=== PATIENT | female | born 1935 | race Asian ===

== ENCOUNTER 2019-05-03 16:01 | Inpatient (IN) | payer OTHER ==
[~2019-05-03] VITALS: Ht 152.4 cm; Wt 67.1 kg
[2019-05-03 16:06] VITALS: Ht 152.4 cm; Wt 67.1 kg
[2019-05-03 16:35] LABS: BASOPHIL % 0.5 % (0-2); PLATELET COUNT 171 x10^3mcL (130-400)
[2019-05-03 16:36] LABS: RED CELL DISTRIBUTION WIDTH 15.4 % (11.5-14.5)
[2019-05-03 17:03] LABS: CALCIUM 9.1 mg/dL (8.5-10.1); CARBON DIOXIDE 29.1 mmol/L (21-32); CHLORIDE SERUM 104 mmol/L (98-107); CREATININE SERUM 0.8 mg/dL (0.6-1.0); GLUCOSE SERUM 115 mg/dL (74-106); POTASSIUM SERUM 4.1 mmol/L (3.5-5.1); SODIUM SERUM 140 mmol/L (136-145)
[2019-05-03 17:09] LABS: ALBUMIN 3.9 g/dL (3.4-5.0); ALKALINE PHOSPHATASE 71 U/L (46-116); ALT/SGPT 24 U/L (14-59); AST/SGOT 11 U/L (15-37); BILIRUBIN TOTAL 0.27 mg/dL (0.20-1.00); TOTAL PROTEIN, SERUM 7.7 g/dL (6.4-8.2)
[2019-05-03] MEDS ORDERED: GLU850 PO (19:30)
[2019-05-03] MEDS ORDERED: LISINOPRIL2.5 MG PO (19:31)
[2019-05-03] MEDS ORDERED: D3-50001 TAB PO (19:31)
[2019-05-03] MEDS ORDERED: ELIQUIS2.5 MG PO (19:31)
[2019-05-03] MEDS ORDERED: VENTOLIN H0.09 MG/A1 INH (19:32)
[2019-05-03] MEDS ORDERED: FOLIC ACID5 MG/ML IJ (19:32)
[2019-05-03 20:40] VITALS: BP 141/59
[2019-05-04 00:08] VITALS: BP 155/56
[2019-05-04 05:27] VITALS: BP 155/58
[2019-05-04 08:23] VITALS: BP 147/54
[2019-05-04 12:02] VITALS: BP 142/54
[2019-05-04 17:02] VITALS: BP 150/46
[2019-05-04 21:06] VITALS: BP 147/61
[2019-05-05 05:48] VITALS: BP 146/63
[2019-05-05 06:27] LABS: PLATELET COUNT 170 x10^3mcL (130-400)
[2019-05-05 07:19] LABS: ALKALINE PHOSPHATASE 56 U/L (46-116); ALT/SGPT 22 U/L (14-59); AST/SGOT 14 U/L (15-37); BILIRUBIN TOTAL 0.2 mg/dL (0.20-1.00); CARBON DIOXIDE 29.7 mmol/L (21-32); CHLORIDE SERUM 106 mmol/L (98-107); CREATININE SERUM 0.9 mg/dL (0.6-1.0); GLUCOSE SERUM 209 mg/dL (74-106); MAGNESIUM 2.4 mg/dL (1.8-2.4); POTASSIUM SERUM 4.4 mmol/L (3.5-5.1); SODIUM SERUM 140 mmol/L (136-145); TOTAL PROTEIN, SERUM 7.1 g/dL (6.4-8.2)
[2019-05-05 07:21] LABS: ALBUMIN 3.2 g/dL (3.4-5.0)
[2019-05-05 07:31] VITALS: BP 141/54
[2019-05-05 07:54] LABS: BASOPHIL % 0 % (0-2); RED CELL DISTRIBUTION WIDTH 15.5 % (11.5-14.5)
[2019-05-05] MEDS ORDERED: LEVAQUIN750 MG PO (10:27)
[2019-05-05] MEDS ORDERED: PREDNISONE20 MG PO (10:28)
[2019-05-05 11:45] VITALS: BP 141/54
== END 2019-05-05 13:15 | disposition home or self-care (01) | DRG 193 ==
LOC: ED 16:01 → DU 19:06
PROVIDERS: Emergency Medicine; Internal Medicine Pulmonary Disease; ADMIT Internal Medicine Pulmonary Disease
DX: J18.9 Pneumonia, unspecified organism (principal); J96.21 Acute and chronic respiratory failure with hypoxia; J44.1 Chronic obstructive pulmonary disease with (acute) exacerbation; E11.9 Type 2 diabetes mellitus without complications; I10 Essential (primary) hypertension; Z99.81 Dependence on supplemental oxygen; Z87.891 Personal history of nicotine dependence; Z79.01 Long term (current) use of anticoagulants; Z68.27 Body mass index [BMI] 27.0-27.9, adult
CPT/HCPCS: 36600; 83880; 87804; 90658; G0378; J0456; J0696; J1650; J2920; J2930; J7040; J7060; J7613; J7620; J7644; Q0092

== ENCOUNTER 2019-05-29 16:01 | Observation (INO) | payer OTHER ==
[~2019-05-29] VITALS: Ht 152.4 cm; Wt 67.2 kg
[~2019-05-29 16:01] MED LIST: D3-50001 TAB PO; ELIQUIS2.5 MG PO; FOLIC ACID5 MG/ML IJ; GLU850 PO; LEVAQUIN750 MG PO; LISINOPRIL2.5 MG PO; PREDNISONE20 MG PO; VENTOLIN H0.09 MG/A1 INH
--- NOTE | 2019-05-29 16:14 | NUR ---
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 PER PT, SHE NOTICED HER BP WAS HIGH, THEN SHE STARTED TO HAVE SOB. PT STS SHE SAW HER REPRODUCTION TECHNICIAN LAST WEEK REGARDING HER HBP AND ADVISED TO TAKE CLONIDINE ONCE A DAY. PT DENIES SOB, CP, FEVER OR SICK CONTACT. HX OF COPD, ON 3L O2 AT HOME. PT AAOX4, CLEAR SPEECH, NO FACIAL DROOP, RESP EU, IN NO ACUTE DISTRESS. PT ON CM.
--- NOTE | 2019-05-29 16:14 | NUR ---
DR WILSON AT BEDSIDE FOR MSE.
--- NOTE | 2019-05-29 16:15 | NUR ---
RT AT BEDSIDE FOR ABG DRAW.
--- NOTE | 2019-05-29 16:22 | NUR ---
NALINI LEIGH AT BEDSIDE FOR EKG.
[2019-05-29 16:38] LABS: BASOPHIL % 0.3 % (0-2); PLATELET COUNT 144 x10^3mcL (130-400)
[2019-05-29 16:42] LABS: RED CELL DISTRIBUTION WIDTH 15.2 % (11.5-14.5)
--- NOTE | 2019-05-29 16:47 | NUR ---
BREATHING TX IN PROGRESS AT BEDSIDE.
[2019-05-29 16:48] LABS: CALCIUM 9.2 mg/dL (8.5-10.1); CARBON DIOXIDE 31.3 mmol/L (21-32); CHLORIDE SERUM 104 mmol/L (98-107); CREATININE SERUM 0.8 mg/dL (0.6-1.0); GLUCOSE SERUM 139 mg/dL (74-106); POTASSIUM SERUM 3.9 mmol/L (3.5-5.1); SODIUM SERUM 141 mmol/L (136-145)
[2019-05-29 17:00] LABS: ALBUMIN 3.4 g/dL (3.4-5.0); ALKALINE PHOSPHATASE 53 U/L (46-116); ALT/SGPT 24 U/L (14-59); AST/SGOT 12 U/L (15-37); BILIRUBIN TOTAL 0.3 mg/dL (0.20-1.00); CHOLESTEROL 152 mg/dL (<200); HDL CHOLESTEROL 75 mg/dL (40-60); LIPASE 176 IU/L (73-393); T4(THYROXINE) 7.5 ug/dL (4.7-13.3); TOTAL PROTEIN, SERUM 6.9 g/dL (6.4-8.2)
[2019-05-29 17:44] LABS: microscopic required? NO
[2019-05-29 17:53] LABS: urine erythrocyte NEGATIVE (NEGATIVE)
[2019-05-29 18:05] LABS: AMPHETAMINE QUAL UR NONE DETECTED (See below)
--- NOTE | 2019-05-29 19:03 | NUR ---
PT AMBULATED TO THE RESTROOM WITH O2.
[2019-05-29] MEDS ORDERED: CLONIDINE HYDR0.1 M1 (20:03)
--- NOTE | 2019-05-29 20:40 | NUR ---
REPORT GIVEN TO GENNA COATS TO ASSUME CARE TO ASSUME TO CARE OF THE PT.
--- NOTE | 2019-05-29 21:33 | NUR ---
PT WAS RECEIVED BY PRIMARY NURSE PAULY FROM ED VIA [facility]. PT WAS SEEN LYING IN BED, CAME IN DUE TO SOB AND RINGING IN THE EARS. PT IS AAOX4. DENIES HEADACHE/DIZZINESS. SPEECH IS CLEAR. SOB NOTED ON MINIMAL EXERTION, LUNG SOUNDS DIMINISHED ON THE BASES, O2 SAT=98% ON 2LPM/NC. DENIES CHEST PAIN/PRESSURE, SR ON THE MONITOR. DENIES ABDOMINAL DISCOMFORT. STATED THAT SHE HAS FREQUENT URINATION. W/ HISTORY OF PSORIAIS, NOTED ON THE LUE. W/ DARK BROWN DISCOLORATIONS ON BLE. ABLE TO MOVE ALL EXTREMITIES. SIDE RAILS UPX2. CALL LIGHT ON REACH. HOB ELEVATED AT 60 DEG. ENDORSED TO PRIMARY NURSE PAULY FOR CONTINUITY OF CARE
--- NOTE | 2019-05-29 21:40 | NUR ---
PT RECEIVED A/O X4, ABLE TO MAKE NEEDS KNOWN. TELE #22, DENIES ANY CP/PRESSURE. PULSES PALPABLE, NO EDEMA PRESENT. BREATHING IS EVEN AND UNALBORED ON 3L NC, NO RESP DISTRESS NOTED. ABD SOFT AND NONDISTENDED, DENIES N/V. VOIDS FREELY, BSC. MILD GENERALIZED WEAKNESS, AMBULATORY WITH SLOW, STEADY GAIT. PT DENIES ANY PAIN AT THIS TIME. SL TO RW, PATENT AND INTACT. ORIENTED PT TO ROOM AND CALL LIGHT. NO ACUTE DISTRESS NOTED. BED IN LOWEST SETTING, SIDE RAILS UP X2, CALL LIGHT WITHIN REACH. WILL CONT TO MONITOR.
[2019-05-29 21:50] VITALS: BP 152/51
[2019-05-29 21:54] VITALS: Ht 152.4 cm; Wt 67.2 kg
[2019-05-30 01:18] VITALS: BP 152/51
[2019-05-30 05:52] VITALS: BP 145/57
--- NOTE | 2019-05-30 06:43 | NUR ---
PT SLEPT AT INTERVALS THROUGHOUT THE EVENING. BREATHING IS EVEN AND UNLABORED ON 3L NC, PT DENIES SOB AT THIS TIME. NO RESP DISTRESS OBSERVED. PT DENIES ANY PAIN. IV TO RW INTACT. NO ACUTE CHANGES ENCOUNTED DURING SHIFT. ALL NEEDS MET AND ANTICIPATED. CALL LIGHT WITHIN REACH. WILL ENDORSE CARE TO AM NURSE.
--- NOTE | 2019-05-30 07:13 | NUR ---
PT IN NO ACUTE DISTRESS. CONTINUITY OF CARE ENDORSED TO AM NURSE, ALL QUESTIONS AND CONCERNS ADDRESSED.
--- NOTE | 2019-05-30 07:20 | NUR ---
SEEN AOX4, NOT IN DISTRESS, O2 AT 3LPM, 97%, NO DYSPNEA, NO CHEST PAIN, RRR, TELE 22, NSR, PALPABLE PULSES, NO EDEMA, DIMINISHED BREATH SOUNDS ON BLF, +BS, LAST BM 05/29/19, VOIDS WITH NO DYSURIA, GENERALIZED WEAKNESS, SILVERY SCALE PLAQUE THICKENING LUE, SEBORRHEIC KERATOSIS BLE, NO PAIN AT THIS TIME, IV INTACT AND PATENT, SL TO RW. NO REDNESS OR INFILTRATION. CALL LIGHT WITHIN REACH. BED AT LOWEST POSITION.
[2019-05-30 07:46] LABS: CALCIUM 10.1 mg/dL (8.5-10.1); CARBON DIOXIDE 29.4 mmol/L (21-32); CHLORIDE SERUM 101 mmol/L (98-107); GLUCOSE SERUM 156 mg/dL (74-106); MAGNESIUM 1.9 mg/dL (1.8-2.4); POTASSIUM SERUM 3.9 mmol/L (3.5-5.1); SODIUM SERUM 142 mmol/L (136-145)
[2019-05-30 08:23] VITALS: BP 130/51
--- NOTE | 2019-05-30 08:31 | NUR ---
SEEN AOX4, NOT IN DISTRESS, O2 SAT 100% , BP 130/51, HR 91. NON PRODUCTIVE COUGH NOTED WITH DIMINISHED BREATH SOUNDS, NO EDEMA NOTED. LASIX IVP, NORVASC PO , LISINOPRIL PO GIVEN. PATIENT HAS HISTORY OF HYPERGLYCEMIA, GLUCOPHAGE PO GIVEN. PROTONIX GIVEN FOR GI PROPHYLAXIS. COLACE GIVEN.
[2019-05-30] MEDS ORDERED: DILTIAZEM 24HR300 M1 PO (09:05)
[2019-05-30] MEDS ORDERED: CENTRUM SILVER1 EACH PO (09:07)
[2019-05-30] MEDS ORDERED: FISH OIL 1,0001 EAC1 PO (09:07)
[2019-05-30] MEDS ORDERED: ALTOPREV40 M2 PO (09:08)
[2019-05-30] MEDS ORDERED: NATURE'S BLEND F1 MG PO (09:33)
--- NOTE | 2019-05-30 09:58 | NUR ---
SPOKE WITH DR. DANIELS REGARDING ELIQUIS AND HEPARIN ORDER. PER DR. DANIELS, CONTINUE ELIQUIS AND DISCONTINUE HEPARIN. PER DR DANIELS, RECONCILE THE FOLLOWING MEDICATIONS: LOVASTATIN 20MG/TAB 1 TAB PO OD, FOLIC ACID 1MG/TAB 1 TAB OD , DILTIAZEM 24H ER CAPSULE 300MG/CAP 1 CAP PO OD, FISH OIL 1000MG/TAB 1 TAB PO OD, VITAMIN D3 125MCG/TAB 5000 IU 1 TAB PO OD, CENTRUM SILVER 1 TAB PO OD.
--- NOTE | 2019-05-30 10:00 | NUR ---
SPOKE WITH PHARMACIST TO VERIFY MEDICATIONS
--- NOTE | 2019-05-30 10:43 | NUR ---
SEEN AOX4, NOT IN DISTRESS WITH O2 AT 2LPM, O2 SAT 98%. PATIENT HAS HISTORY OF COPD. OCCASIONAL NON PRODUCTIVE COUGH. NO FEVER, NO CHILLS, NO SOB. DAY 1 LEVAQUIN 1 TAB TAKEN.
--- NOTE | 2019-05-30 10:50 | NUR ---
PATIENT COMPLAINED OF HEADACHE. PER PATIENT SHE LACKED SLEEP. TYLENOL PO GIVEN.
--- NOTE | 2019-05-30 10:51 | NUR ---
PER PATIENT DAUGHTER WILL COME OVER FOR HER ELIQUIS MEDICATION. SHE DOESNT KNOW WHAT TIME DURING THE DAY SHE WILL COME
--- NOTE | 2019-05-30 10:52 | NUR ---
BROUGHT DOWN FOLIC ACID,LOVASTATIN AND DILTIAZEM TO PHARMACY FOR VERIFICATION OF MEDICATION. CENTRUM, VITAMIN D3 AND FISH OIL AT BEDSIDE. PER DR DANIELS, HE AGREED TO PATIENT TAKING BEDSIDE MEDICATION. PER PHARMACIST, HOSPITAL HAS VITAMIN D3 AND FOLIC ACID. PER PHARMACIST, WE WILL SUPPLY VITAMIN D3 AND FOLIC ACID FOR PATIENT. PER PATIENT , SHE WILL TAKE CENTRUM AND FISH OIL ON HER OWN PERMITTED BY DR DANIELS.
--- NOTE | 2019-05-30 11:56 | NUR ---
CHECKED ELIQUIS AT [facility], MEDICATION NOT AVAILABLE. CALLED PHARMACY FOR AVAILABILITY OF MEDICATION. PER PHARMACIST, THEY WILL BRING IT UP.
--- NOTE | 2019-05-30 12:03 | NUR ---
PATIENT HAS HISTORY OF COPD, HISTORY OF DYSPNEA AFTER WALKING TO BATHROOM AND BACK, NON PRODUCTIVE COUGH NOTED, O2 AT 2LPM . O2 SAT 89% AFTER WALKING TOWARDS BATHROOM, BUT GOES BACK TO 98% AFTER 5 MINUTES. SOLUMEDROL IVP GIVEN.
[2019-05-30 12:31] VITALS: BP 139/45
--- NOTE | 2019-05-30 12:49 | NUR ---
ELIQUIS PO GIVEN FOR DVT PROPHYLAXIS
--- NOTE | 2019-05-30 14:00 | NUR ---
SEEN BY DR DANIELS . PER DR DANIELS, PATIENT ALLOWED TO DRINK UP TO 1500ML . MAY OR MAY NOT DISCHARGE TOMORROW DEPENDING ON SYMPTOMS OF PATIENT.
--- NOTE | 2019-05-30 14:08 | NUR ---
PATIENT HAS SUPRAPUBIC PAIN WITH PS 8/10. MORPHINE SULFATE IVP GIVEN.
--- NOTE | 2019-05-30 14:20 | NUR ---
NASOPHARYNGEAL SWAB DONE ON BOTH NARES FOR INFLUENZA A AND B TEST.
[2019-05-30 16:52] VITALS: BP 125/51
--- NOTE | 2019-05-30 17:15 | NUR ---
PATIENT VERBALIZED THAT ELIQUIS IS TAKEN 2.5MG/TAB 1 TAB ONCE A DAY. SPOKE WITH PHARMACIST REGARDING ELIQUIS DOSAGE, PER PHARMACIST, RECOMMENDED IS 5MG/TAB 1 TAB ONCE A DAY OR 2.5MG/TAB 1 TAB TWICE A DAY. PER PATIENT, SHE GETS HER ELIQUIS FROM DR EYAD DOE. TOLD PATIENT THAT RECOMMENDED DOSE IS 5MG/TAB 1 TAB ONCE A DAY. PATIENT MADE AWARE THAT PHARMACIST HAS VERIFIED MEDICATION. PER PATIENT, SHE WILL CALL DR EYAD DOE TOMORROW TO FAX THE MEDICATION RECORD. PER PATIENT , SHE IS WILLING TO TAKE ELIQUIS 2.5MG/TAB 1 TAB TWICE A DAY.
--- NOTE | 2019-05-30 17:47 | NUR ---
SEEN SITTING DOWN , NOT IN DISTRESS, O2 AT 2LPM , 97%, NON PRODUCTIVE COUGH STILL NOTED, DIMINISHED BLF, SOLUMEDROL IVP GIVEN.
--- NOTE | 2019-05-30 19:10 | NUR ---
PT RECEIVED A/O X4, ABLE TO MAKE NEEDS KNOWN. TELE #22, DENIES ANY CP/PRESSURE. PULSES PALPABLE, NO EDEMA PRESENT. BREATHING IS EVEN AND UNALBORED ON 2L NC, NO RESP DISTRESS NOTED. ABD SOFT AND NONDISTENDED, DENIES N/V. VOIDS FREELY, BSC. MILD GENERALIZED WEAKNESS, AMBULATORY WITH SLOW, STEADY GAIT. PT DENIES ANY PAIN AT THIS TIME. SL TO RW, PATENT AND INTACT. NO ACUTE DISTRESS NOTED. BED IN LOWEST SETTING, SIDE RAILS UP X2, CALL LIGHT WITHIN REACH. WILL CONT TO MONITOR.
--- NOTE | 2019-05-30 19:40 | NUR ---
DR RAMOS AT BEDSIDE FOR CONSULT. PER DR RAMOS, "CONTINUE CURRENT ABX THERAPY AND NOTIFY HIM IF INFLUENZA A+B IS POSITIVE." ALL QUESTIONS AND CONCERNS ADDRESSED. NO NEW ORDERS AT THIS TIME.
[2019-05-30 20:19] VITALS: BP 131/46
[2019-05-31 05:31] VITALS: BP 125/49
[2019-05-31 06:01] LABS: PLATELET COUNT 175 x10^3mcL (130-400)
--- NOTE | 2019-05-31 06:03 | NUR ---
PT SLEPT WELL THROUGHOUT THE EVENING. BREATHING IS EVEN AND UNLABORED ON 2L NC, NO RESP DISTRESS NOTED. PT REPORTS HAVING MILD HEADACHE, OFFERED PT PAIN MEDS, BUT PT REFUSED AND STATES "IT IS OKAY FOR NOW." ICE PACK GIVEN PER PT'S REQUEST FOR HER HEADACHE. NO ACUTE CHANGES ENCOUNTERED DURING SHIFT. ALL NEEDS MET AND ANTICIPATED. SL TO RW INTACT. PER PT, WILL CALL HER SUPERVISOR [employer] DR CASTANO REGARDING HER ELIQUIS PRESCRIPTION AND REQUEST TO FAX TO THE UNIT. CALL LIGHT WITHIN REACH. WILL ENDORSE CARE TO AM NURSE.
[2019-05-31 06:06] LABS: BASOPHIL % 0 % (0-2); RED CELL DISTRIBUTION WIDTH 15.3 % (11.5-14.5)
--- NOTE | 2019-05-31 07:24 | NUR ---
PT IN NO ACUTE DISTRESS. CONTINUITY OF CARE ENDORSED TO AM NURSE. ALL QUESTIONS AND CONCERNS ADDRESSED.
--- NOTE | 2019-05-31 07:25 | NUR ---
RECEIVED PATIENT. IN BED, AWAKE. STABLE. NO SOB NOTED. NO ACUTE RESP DISTRESS NOTED. NO COMPLAINTS OF PAIN AT THIS TIME. IV INTACT AND PATENT. SALINE LOCK. NO ERYTHEMA/REDNESS NOTED. SAFETY PRECAUTION IN PLACE. CALL LIGHT WITHIN REACH. WILL CONTINUE TO MONITOR.
--- NOTE | 2019-05-31 07:30 | NUR ---
PATIENT ACCOMPANIED DOWNSTAIRS FOR XR CHEST 2V. WILL WAIT FOR ARRIVAL BACK TO UNIT.
--- NOTE | 2019-05-31 07:50 | NUR ---
PT RETURNED TO UNIT VIA WHEELCHAIR FROM XR CHEST 2VIEW. WILL CONTINUE TO MONITOR.
[2019-05-31 07:55] LABS: CALCIUM 9.4 mg/dL (8.5-10.1); CREATININE SERUM 1.3 mg/dL (0.6-1.0); GLUCOSE SERUM 218 mg/dL (74-106); MAGNESIUM 2.3 mg/dL (1.8-2.4)
[2019-05-31 08:53] LABS: CARBON DIOXIDE 27.7 mmol/L (21-32); POTASSIUM SERUM 3.2 mmol/L (3.5-5.1)
[2019-05-31 09:09] VITALS: BP 145/63
[2019-05-31 09:10] LABS: CHLORIDE SERUM 101 mmol/L (98-107); SODIUM SERUM 141 mmol/L (136-145)
--- NOTE | 2019-05-31 09:30 | NUR ---
PATIENT IN BED, STABLE. REMAINS ON 3L NC. COMPLAINING OF DRYNESS TO NASAL AREA DUE TO OXYGEN. PER RT, OK TO APPLY HUMIDIFIER WITH OXYGEN. PT MADE AWARE AND VERBALIZED UNDERSTANDING. NO COMPLAINTS OF PAIN AT THIS TIME. NO SOB NOTED. NO ACUTE RESP DISTRESS NOTED. IV INTACT AND PATENT. NO ERYTHEMA/SWELLING NOTED. SAFETY PRECAUTION IN PLACE. CALL LIGHT WITHIN REACH. WILL CONTINUE TO MONITOR.
--- NOTE | 2019-05-31 12:00 | NUR ---
SPOKE WITH DR. DOE OFFICE REGARDING ELIQUIS MEDICATION. PER DR. DOE OFFICE, PT IS ON ELIQUIS 2.5 MG DAILY (ONCE A DAY) AND NOT ELIQUIS 2.5 MG BID. SPOKE WITH [facility] [place] PHARMACIST REGARDING MEDICATION. PER PHARMACIST, ELIQUIS 2.5 MG IS RECOMMENDED TO BE TAKEN TWICE A DAY AND RECOMMENDS TO CONFIRM WITH DR. DANIELS REGARDING MEDICATION DOSAGE WHEN HE ARRIVES TO UNIT. WILL WAIT FOR DR. DANIELS ARRIVAL TO UNIT. PT MADE AWARE. PT VERBALIZED UNDERSTANDING.
[2019-05-31 12:35] VITALS: BP 120/49
--- NOTE | 2019-05-31 12:40 | NUR ---
PT IN BED, EATING LUNCH. NO ACUTE RESP DISTRESS NOTED. REMAINS ON 3L NC. NO SOB NOTED. NO COMPLAINTS OF PAIN AT THIS TIME. IV INTACT AND PATENT. NO ERYTHEMA/SWELLING NOTED. SAFETY PRECAUTION IN PLACE. CALL LIGHT WITHIN REACH. WILL CONTINUE TO MONITOR.
--- NOTE | 2019-05-31 13:49 | NUR ---
SPOKE WITH DR. DANIELS REGARDING POTASSIUM LEVEL 3.2. PER DR. DANIELS, GIVE 40 MEQ PO BEFORE DISCHARGE. DR. DANIELS MADE AWARE ABOUT BUN 36.0 AND CREAT 1.3. NO NEW ORDERS AT THIS TIME. PER DR. DANIELS, OK TO DISCHARGE PATIENT TODAY.
[2019-05-31 14:20] VITALS: BP 120/49
--- NOTE | 2019-05-31 15:00 | NUR ---
DISCHARGE HOME INSTRUCTIONS GIVEN TO PATIENT. PATIENT VERBALIZED UNDERSTANDING. ALL QUESTIONS AND CONCERNS ADDRESSED. D/C IV TO R HAND/WRIST, TOLERATED WELL. CATHETER INTACT, APPLIED PRESSURE, GAUZE AND TAPE IN PLACE. TELE MONITOR RETURNED TO MONITOR STATION. ALL NEEDS MET. INSTRUCTED TO USE CALL LIGHT WHEN READY TO LEAVE THE UNIT.
--- NOTE | 2019-05-31 15:15 | NUR ---
PATIENT IS BEING DISCHARGED IN STABLE CONDITION. NO DISTRESS NOTED. ALL BELONGINGS SENT WITH PATIENT. ALL NEEDS MET. PATIENT ACCOMPANIED TO DISCHARGE OFFICE BY MARY MEDELLIN.
== END 2019-05-31 15:16 | disposition home or self-care (01) ==
LOC: ED 16:01 → DU 20:00
PROVIDERS: Emergency Medicine; ADMIT Internal Medicine Pulmonary Disease
DX: J44.1 Chronic obstructive pulmonary disease with (acute) exacerbation (principal); I11.0 Hypertensive heart disease with heart failure; I50.41 Acute combined systolic (congestive) and diastolic (congestive) heart failure; Z87.891 Personal history of nicotine dependence; E11.9 Type 2 diabetes mellitus without complications
CPT/HCPCS: 36600; 80201; 82962; 83880; 87804; 94150; 97116-GP; C9113; G0378; J1940; J2920; J2930; J7613; J7620; J7626; J7644; Q0092